=== PATIENT | male | born 1960 | race African-American/Black ===

== ENCOUNTER 2019-01-04 09:45 | Inpatient (IN) | payer OTHER ==
[~2019-01-04] VITALS: Ht 188 cm; Wt 120.2 kg
--- NOTE | ~2019-01-04 | H ---
[facility] [place] [address] HISTORY AND PHYSICAL Name: SALOMÓN SY Room #: 170-5 ADM IN M.R.#: [id number] Admission: 01/04/19 Attend Phys: Norman Flores MD Discharge: Date of : 60 Report #: [id number] THIS REPORT FOR: //name// CC: Norman Flores DATE OF SERVICE: 01/04/2019 HISTORY OF PRESENT ILLNESS: This is a 58-year-old male patient who presented to the Emergency Room after having several weeks history of intermittent substernal chest discomfort. The patient's discomfort had been waxing and waning, but on the day of admission, he was awakened with substernal discomfort and did not away as it had previously. He stated that he usually would rest and it would go away, but this time, it just did not. He subsequently was concerned and presented to the Emergency Room where initial ECG was not classically consistent with ST segment elevation myocardial infarction. He received some intervention and subsequent ECGs demonstrated development of ST segment elevation compatible with anterior wall current of injury. The patient states the discomfort was associated today with some shortness of breath, but usually is not. He has not been having any exertional tightness, heaviness or fullness, any exertional diaphoresis, or dyspnea. No dependent or nondependent edema. He denies any palpitations, orthopnea, or PND prior to today. PAST MEDICAL HISTORY: Significant for: 1. Chronic pain syndrome. 2. Diabetes mellitus. PAST SURGICAL HISTORY: Significant for I and D of a perirectal abscess. MEDICATIONS: At home are metformin, glimepiride, and hydrocodone. ALLERGIES: No known drug allergies. SOCIAL HISTORY: The patient does not smoke. Consumes alcohol socially. Does not use recreational drugs. Does not exercise regularly and does not follow any type dietary restriction, although he tries to watch his "sugars" REVIEW OF SYSTEMS: Except for symptoms as mentioned and those commensurate with comorbid state, the 10-point review of system is negative. LABORATORY DATA: Reviewed and noted in the chart. Electrocardiogram, sinus rhythm, acute anterior wall myocardial infarction. PHYSICAL EXAMINATION: VITAL SIGNS: Well-developed, well-nourished male in moderate distress with blood pressure 151/85, pulse 76, respirations 16 and temperature is 36.6. [address] [address] HISTORY AND PHYSICAL Name: SALOMÓN SYDELL Room #: 1705 [facility] IN [facility].#: [id number] Admission: 01/04/19 Attend Phys: Norman Flores MD Discharge: Date of : 60 Report #: [id number] HEENT: Normocephalic, atraumatic. Pupils are equal, round, reactive to light and accommodation. Extraocular muscles are intact. Sclerae and conjunctivae are anicteric. NECK: JVD is normal. Carotid upstrokes are bilaterally symmetrical. No bruits are heard. No thyromegaly. No lymphadenopathy. LUNGS: Clear to auscultation. No wheezes, rhonchi or crackles. No CVA tenderness. CARDIAC: Demonstrates a regular rhythm. Normal first and second heart sounds. No ventricular or atrial gallops, no rubs noted. No murmurs. No lifts or heaves, PMI normal. ABDOMEN: Soft, nontender, nondistended. Normal bowel sounds. EXTREMITIES: Without cyanosis, clubbing or edema. Distal pulses are intact. DTR symmetrical. NEUROLOGIC: Cranial nerves 2-12 are grossly normal and symmetrical. PSYCHIATRIC: Alert, oriented with normal affect. SKIN: Warm and dry. RADIOLOGIC: Chest x-ray failed to demonstrate any acute process. IMPRESSION: 1. Acute anterior wall myocardial infarction consistent with anterior current of injury. In view of this, options were discussed and we just proceeded directly to the laboratory technology teacher for subsequent intervention. The risks, complications and alternatives of catheterization, percutaneous revascularization, and conscious sedation have been discussed with the patient; he voices understanding and wished to proceed. 2. Diabetes mellitus as per primary care, but we will hold metformin for 48-72 hours post-iodine contrast. In an individual such as him, Jardiance would be very reasonable addition to regimen. 3. Chronic pain, as per primary care, but he is already on a medical regimen. By: 1207 1225 Fabian Green MD /nt
[~2019-01-04 09:45] MED LIST: AMARYL4 MG; GLUCOPHAGE1000 MG; NORCO 5-325 TA1 EACH PO
[2019-01-04 09:46] VITALS: BP 184/100
[2019-01-04 10:15] LABS: ABSOLUTE NEUTROPHILS 5.5 thou/uL (1.4-8.2); BASOPHILS 0.9 % (0.0-2.0); EOSINOPHILS 0.4 % (0.0-3.0); HEMATOCRIT 43.4 % (42.0-52.0); HEMOGLOBIN 13.9 gm/dL (14.0-18.0); LYMPHOCYTES 13.6 % (24.0-44.0); MCH 25.9 pg (26.0-34.0); MCHC 32.1 g/dL (28.0-37.0); MCV 80.7 fL (80.0-100.0); PLATELET COUNT 232 thou/uL (150-400); POLYS 80.1 % (36.0-66.0); RBC 5.38 mil/uL (4.50-6.00); RDW 14.4 % (10.5-14.5); WBC 6.9 thou/uL (4.0-11.0)
[2019-01-04 10:25] LABS: CREATININE 1.2 mg/dL (0.7-1.3); POTASSIUM 4.4 mmol/L (3.5-5.1)
[2019-01-04 10:36] LABS: ALBUMIN 3.5 g/dL (3.4-5.0); TOTAL BILIRUBIN 0.4 mg/dL (<0.1-1.0); TOTAL PROTEIN 7.8 g/dL (6.4-8.2); TROPONIN-I 0.44 ng/mL (<0.06)
[2019-01-04 11:00] VITALS: BP 154/98
[2019-01-04 13:00] VITALS: BP 156/92
[2019-01-04 19:30] VITALS: BP 156/93
--- NOTE | 2019-01-04 20:01 | NUR ---
ASSUMED CARE OF PATIENT AT 1230 FROM MANAGER PROCESS EXCELLENCE. MANAGER PROCESS EXCELLENCE TEAM GAVE BEDSIDE REPORT AND REVIEWED THE RIGHT SIDED GROIN SITE WITH THIS NURSE. ADMISSION COMPLETED. ASSESSMENTS COMPLETED. PATIENT'S BLOOD SUGAR WAS MONITORED AC. ECHO PERFORMED AT THE BEDSIDE WHILE PATIENT WAS ON BEDREST. PATIENT WAS ON BEDREST UNTIL 1600. PATIENT SAT UP IN BED BUT CHOSE TO NOT GET OUT OF BED. RIGHT GROIN SITE CONTINUED TO STAY CLEAN, DRY AND INTACT WITH MINIMAL TENDERNESS. PATIENT HAS HAD MULTIPLE FAMILY MEMBERS IN THE ROOM TODAY. PATIENT DENIES ANY CHEST PAIN. PATIENT TO CONTINUE WITH P0C.
--- NOTE | 2019-01-05 00:14 | 2DMMODE ---
[facility] [address] [place] [address] 2 D/M-MODE ECHOCARDIOGRAM Name: SALOMÓN SY Room #: 219-P [facility] IN .R.#: [id number] Admission: 01/04/19 Attend Phys: Norman Flores MD Discharge: Date of : 60 Date of Service: 01/05/19 0014 Report #: [id number] THIS REPORT FOR: //name// APPROVED REPORT Study performed: 01/04/2019 13:49:14 EXAM: Comprehensive 2D, Doppler, and color-flow Echocardiogram Patient Location: Bedside Room #: 219 Status: routine BSA: 2.45 HR: 61 bpm BP: 154/98 mmHg Rhythm: NSR Other Information Study Quality: Adequate Indications Diabetes Chest Pain STEMI 2D Dimensions IVSd: 14.06 (7-11mm) LVOT Diam: 23.42 (18-24mm) LVDd: 56.39 mm PWd: 13.64 (7-11mm) Ascending Ao: 34.33 (22-36mm) LVDs: 41.85 (25-40mm) Aortic Root: 33.59 mm IVC: 14.00 mm Volumes Left Atrial Volume (Systole) Single Plane 4CH: 37.05 mL Single Plane 2CH: 39.28 mL LA ESV Index: 18.00 mL/m2 Aortic Valve AoV Peak Ronnie.: 0.94 m/s AO Peak Gr.: 3.53 mmHg LVOT Max P.58 mmHg LVOT Max V: 0.95 m/s MERCEDEZ Vmax: 4.34 cm2 Mitral Valve E/A Ratio: 0.7 MV Decel. Time: 234.19 ms [facility] [address] [place] [address] 2 D/M-MODE ECHOCARDIOGRAM Name: SALOMÓN SY Room #: 219-P [facility] IN [facility]#: [id number] Admission: 01/04/19 Attend Phys: Norman Flores MD Discharge: Date of : 60 Date of Service: 01/05/19 0014 Report #: [id number] MV E Max Ronnie.: 0.73 m/s MV A Ronnie.: 0.99 m/s MV PHT: 67.92 ms IVRT: 101.50 ms Pulmonary Valve PV Peak Ronnie.: 0.63 m/s PV Peak Gr.: 1.58 mmHg Pulmonary Vein P Vein S: 0.49 m/s P Vein A: 0.21 m/s P Vein D: 0.21 m/s P Vein A Dur.: 110.7 msec P Vein S/D Ratio: 2.33 Left Ventricle Left ventricle is at the upper limits of normal. There is hypokinesis in the apical septal wall. There is hypokinesis in the apical wall. Mild concentric left ventricular hypertrophy. The overall left ventricular systolic function appears normal. LVEF is 50%. Grade I - abnormal relaxation pattern. Right Ventricle The right ventricle is normal size. The right ventricular systolic function is normal. Atria The left atrium size is normal. The right atrium size is normal. Aortic Valve The aortic valve is normal in structure. No aortic regurgitation is present. There is no aortic valvular stenosis. Mitral Valve The mitral valve is normal in structure. Trace mitral regurgitation. No evidence of mitral valve stenosis. Tricuspid Valve The tricuspid valve is normal in structure. There is no tricuspid valve regurgitation noted. Pulmonic Valve The pulmonary valve is normal in structure. There is no pulmonic valvular regurgitation. Great Vessels The aortic root is normal in size. IVC is normal in size and [facility] [address] [place] [address] 2 D/M-MODE ECHOCARDIOGRAM Name: SALOMÓN SY LOUISE Room #: 219-P [facility] IN ..#: [id number] Admission: 01/04/19 Attend Phys: Norman Flores MD Discharge: Date of : 60 Date of Service: 01/05/19 0014 Report #: [id number] collapses >50% with inspiration. Pericardium There is no pericardial effusion. <Conclusion> Left ventricle is at the upper limits of normal. Mild concentric left ventricular hypertrophy. There is hypokinesis in the apical septal wall. There is hypokinesis in the apical wall. LVEF is 50%. The aortic valve is normal in structure. The mitral valve is normal in structure. Trace mitral regurgitation. The tricuspid valve is normal in structure. The pulmonary valve is normal in structure. There is no pericardial effusion. <ELECTRONICALLY SIGNED> By: Fabian Green MD 01/05/194 Fabian Green MD /INF
[2019-01-05 00:15] VITALS: BP 138/78
--- NOTE | 2019-01-05 04:40 | NUR ---
PT HAS RESTED WELL TONIGHT BUT NOT SOLID SLEEP. PT CONTINUES SR W/PACs ON MONITOR. NO C/O CP DURING MY SHIFT. NO COMPLAINTS OF ANY OTHERS NEEDS WELL. RIGHT GROIN SITE FROM POST HEART CATH IS SOFT, WITH DRIED DRAINAGE OUTLINED AND SOME BRUISING NOTED. AM LABS TO BE REVIEWED. PT HOPING TO GO HOME TODAY.
[2019-01-05 04:45] VITALS: BP 122/61
--- NOTE | 2019-01-05 05:42 | NUR ---
DISCUSSED WITH PT TELEMETRY INTERFERENCE CONSENT, PT SIGNED PAPER AND V/U.
[2019-01-05 05:52] LABS: HEMATOCRIT 40.1 % (42.0-52.0); HEMOGLOBIN 13.1 gm/dL (14.0-18.0); MCH 26.3 pg (26.0-34.0); MCHC 32.6 g/dL (28.0-37.0); MCV 80.8 fL (80.0-100.0); RBC 4.96 mil/uL (4.50-6.00); RDW 14.5 % (10.5-14.5); WBC 7.3 thou/uL (4.0-11.0)
[2019-01-05 05:58] LABS: ALBUMIN 3.1 g/dL (3.4-5.0); CALCIUM 8.7 mg/dL (8.5-10.1); POTASSIUM 4.2 mmol/L (3.5-5.1); TOTAL BILIRUBIN 0.6 mg/dL (<0.1-1.0); TOTAL PROTEIN 6.7 g/dL (6.4-8.2)
[2019-01-05 06:01] LABS: CHOLESTEROL 229 mg/dL (<200); HDL CHOLESTEROL 51 mg/dL (>40); LDL CHOLESTEROL 160 mg/dL (<100); TC:HDL 4.5 Ratio (Not establshd); TRIGLYCERIDE 93 mg/dL (<150); VLDL 19 mg/dL (<40)
[2019-01-05 06:05] LABS: TROPONIN-I 21.74 ng/mL (<0.06)
[2019-01-05 06:07] LABS: SERUM ASSESSMENT Clear
[2019-01-05 08:28] VITALS: BP 121/72
[2019-01-05 13:12] VITALS: BP 136/76
[2019-01-05] MEDS ORDERED: GLIPIZIDE XL10 MG PO (13:27)
[2019-01-05] MEDS ORDERED: JARDIANCE10 MG PO (13:27)
[2019-01-05] MEDS ORDERED: EFFIENT10 MG PO (13:43)
[2019-01-05] MEDS ORDERED: NITROSTAT 0.4 MG SUBLING (13:44)
[2019-01-05] MEDS ORDERED: Lipitor 40 MG Tab PO (13:44)
[2019-01-05] MEDS ORDERED: METOPROLOL SUCCINATE PO (13:45)
[2019-01-05] MEDS ORDERED: ZESTRIL PO (13:45)
[2019-01-05] MEDS ORDERED: Ambien 5 MG Tablet PO (13:46)
[2019-01-05] MEDS ORDERED: NOVOLOG100 UNIT/1 SUBQ (13:47)
--- NOTE | 2019-01-05 13:52 | NUR ---
PT'S [employer]IG[employer] INSURANCE IS OON WITHNO OON BENEFITS. UPDATED DRS EMILIA AND ROEMLIA. PT NEEDS TO BE DISCHARGED IF MEDICALLY STABLE OR TRANSFERRED TO IN [facility]. PT IS STABLE FOR DC HOME TODAY. PROVIDED PT WITH IN [facility].
[2019-01-05 14:23] VITALS: BP 136/76
--- NOTE | 2019-01-05 14:29 | EKG ---
[place] [address] [facility] [place] [address] ELECTROCARDIOGRAM REPORT Name: SALOMÓN SY Room #: 219-P ADM IN M.R.#: [id number] Admission: 01/04/19 Attend Phys: Norman Flores MD Discharge: Date of : 60 Report #: [id number] THIS REPORT FOR: //name// [facility] ED Test Date: 2019-01-04 Test Time: 09:48:23 Pat Name: SALOMÓN SY Department: Room: 219 Gender: M Box Toe Stitcher: RANDY : 1960 Requested By: Og Lamb Order Number: [id number] MD: Charan Petersen Measurements Intervals [place] Rate: 78 P: 44 CT: 171 QRS: 36 QRSD: 100 T: 104 QT: 407 QTc: 464 Interpretive Statements Sinus rhythm Left atrial enlargement Abnrm T, probable ischemia, anterolateral lds No previous ECG available for comparison Electronically Signed On 01-05-2019 14:29:26 CDT by Charan Petersen [email or web address] <ELECTRONICALLY SIGNED> By: Charan Petersen MD 01/05/19 1429 0948 09 Charan Petersen MD /RADHA
--- NOTE | 2019-01-05 14:33 | EKG ---
[address] [address] ELECTROCARDIOGRAM REPORT Name: SALOMÓN SY Room #: 219-P ADM IN M.R.#: [id number] Admission: 01/04/19 Attend Phys: Norman Flores MD Discharge: Date of : 60 Report #: [id number] THIS REPORT FOR: //name// [facility] ED Test Date: 2019-01-04 Test Time: 10:44:15 Pat Name: ASLOMÓN SY Department: Room: 219 P Gender: M Diabetes Territory Manager: MIRZA : 1960 Requested By: Og Lamb Order Number: [id number] MD: Charan Petersen Measurements Intervals [place] Rate: 69 P: 42 KS: 179 QRS: 39 QRSD: 123 T: 114 QT: 422 QTc: 452 Interpretive Statements Sinus rhythm Probable left atrial enlargement Left ventricular hypertrophy Anterior infarct, acute (LAD) No previous ECG available for comparison Electronically Signed On 01-05-2019 14:33:22 CDT by Charan Petersen [email or web address] <ELECTRONICALLY SIGNED> By: Charan Petersen MD 01/05/19 1433 1044 1044 Charan Petersen MD /RADHA
--- NOTE | 2019-01-05 14:49 | EKG ---
[place] [address] [facility] [place] [address] ELECTROCARDIOGRAM REPORT Name: SALOMÓN SY Room #: 219-P ADM IN M.R.#: [id number] Admission: 01/04/19 Attend Phys: Norman Flores MD Discharge: Date of : 60 Report #: [id number] THIS REPORT FOR: //name// [facility] Test Date: 2019-01-05 Test Time: 07:51:23 Pat Name: SALOMÓN SY Department: Room: 219 P Gender: M Assistant Branch Manager: VALENTIN : 1960 Requested By: Norman Flores Order Number: [id number] MD: Charan Petersen Measurements Intervals [place] Rate: 65 P: 57 ID: 170 QRS: 34 QRSD: 105 T: 148 QT: 477 QTc: 496 Interpretive Statements Sinus rhythm Probable left atrial enlargement Probable anteroseptal infarct, recent Lateral leads are also involved No previous ECG available for comparison Electronically Signed On 01-05-2019 14:48:47 CDT by Charan Petersen [email or web address] <ELECTRONICALLY SIGNED> By: Charan Petersen MD 01/05/19 1448 0751 0751 Charan Petersen MD /RADHA
--- NOTE | 2019-01-05 14:53 | NUR ---
ASSUMED CARE AROUND 0700. AXOX4. CLEARED BY CARDIOLOGY. ENDOCRINALOGY CONBSULT COMPLETED WITH NEW PRECRIPTION. CAME AND SAW THE PT AT BEDSIDE FOR D/C. TERESITA CHEST PAIN OR ANY PAIN TODAY. R GROIN CATH SITE CHECKED CLEAN AND INTACT. PRESSURE DRESSING APPLIED AND EDUCATION GIVEN. D/C PRESCRIPTIONS AND EDUCATION GIVEN AT BEDSIDE WITH PRESENT. IV TAKEN OUT. TELEMETRY D/C. PT LEFT IN STABLE CONDITION.
[2019-01-05 14:58] VITALS: BP 136/76
[2019-01-06 01:06] LABS: GLYCOHEMOGLOBIN (HGB A1C) 13.2 % (4.8-5.6)
--- NOTE | 2019-01-06 11:26 | HC ---
[facility] [place] [address] CONSULTATION Name: SALOMÓN SY Room #: 219-P [facility] IN M.R.#: [id number] Admission: 01/04/19 Attend Phys: Norman Flores MD Discharge: 01/05/19 Date of : 60 Report #: [id number] THIS REPORT FOR: //name// CC: Norman Flores MD DATE OF SERVICE: 01/05/2019 ENDOCRINE CONSULTATION CONSULTING PHYSICIAN: Dr. Green. PRIMARY CARE PHYSICIAN: Dr. Norman Flores. REASON FOR CONSULTATION: Uncontrolled type 2 diabetes mellitus. HISTORY OF PRESENT ILLNESS: This is a 58-year-old male patient whose medical background is significant for type 2 diabetes mellitus diagnosed many years ago as well as hyperlipidemia and obesity. The patient was admitted here yesterday following a presentation to the ER with intermittent chest pain that was eventually determined to be linked to STEMI, which earned the patient a coronary angiogram yesterday and a stent placement. The patient has no prior history of CVD. He notes that he has had intermittent chest pain weeks prior to his presentation. For type 2 diabetes mellitus, the patient is maintained on a regimen of metformin and glimepiride; however, he notes that therapeutic changes were being conducted over the past few months and that he had been largely without any active treatment for the majority of these past 3 months. He is not aware of issues pertaining to diabetic retinopathy, nephropathy or neuropathy. The patient is not on active antihypertensive or lipid-lowering therapy. REVIEW OF SYSTEMS: CONSTITUTIONAL: No major issues with fatigue, tiredness, or fever or chills. HEENT: Negative for sore throat, earache. PULMONARY: Negative for shortness of breath, cough or hemoptysis. CARDIAC: Noted for chest pain, intermittent palpitations and occasional lightheadedness. GASTROINTESTINAL: Negative for abdominal pain, nausea, vomiting, noted for occasional bloating and belching. NEUROLOGIC: Negative for loss of consciousness, headaches or seizure activity. SKIN: Negative for rash, ulceration or discoloration. PSYCHIATRIC: Negative for delusions, hallucinations. Otherwise, review of systems is noncontributory other than those mentioned in HPI. [facility] [address] [place] [address] CONSULTATION Name: SALOMÓN SY Room #: 219-P [facility] IN ..#: [id number] Admission: 01/04/19 Attend Phys: Norman Flores MD Discharge: 01/05/19 Date of : 60 Report #: [id number] PAST MEDICAL HISTORY: 1. Type 2 diabetes mellitus. 2. Obesity. 3. Hypertension. 4. Recently diagnosed coronary artery disease, status post STEMI and stent placement. OUTPATIENT MEDICATIONS: Include glimepiride and metformin. CURRENT MEDICATIONS: Include atorvastatin 40 mg daily, lisinopril 2.5 mg daily, metoprolol 12.5 mg b.i.d., Humalog supplemental scale. ALLERGIES: No known drug allergies. FAMILY HISTORY: Noncontributory. SOCIAL HISTORY: The patient denies the use of tobacco, alcohol or illicit drugs. PHYSICAL EXAMINATION: GENERAL: Pleasant, middle-aged -Nepalese male patient who is not in apparent pain or distress. VITAL SIGNS: Blood pressure is 136/76 mmHg, heart rate is 66 beats per minute, respirations 17 per minute, temperature 37.2 degrees. HEENT: Anicteric sclerae. Intact extraocular motions. NECK: Supple, without JVD, carotid bruits or lymphadenopathy. I do not appreciate thyromegaly. CHEST: Clear to auscultation with good air entry bilaterally. No wheezes or crackles. HEART: Regular rate and rhythm without murmurs or gallops. ABDOMEN: Soft and lax without tenderness or organomegaly. He has active bowel sounds. EXTREMITIES: Lower extremity exam is negative for ankle edema. The patient has good pedal pulses bilaterally. NEUROLOGIC: Awake, alert and oriented to time, place and person. The remainder of his examination is nonfocal. SKIN: Negative for ulceration or discoloration. PSYCHIATRIC: Appropriate, pleasant, interactive. Normal mood and affect. LABORATORY RESULTS: Blood glucose values during his hospital stay have run from 223-287 mg/dL. Otherwise, sodium 136, potassium 4.2, chloride 101, CO2 of 27, anion gap 8, BUN 11, creatinine 1.0, glucose 252, AST 111, total bilirubin 0.6, calcium 8.7, alkaline phosphatase 85, ALT 38, protein 6.7, albumin 3.1, GFR 93. Troponin 21.7. Total cholesterol 229, triglycerides 93, HDL 51, LDL 160. White blood count 7.3, hemoglobin 13.1, hematocrit 40.1, platelets 217. Hemoglobin A1c has been ordered, but is pending. [address] [address] CONSULTATION Name: SALOMÓN SY Room #: 219-P [facility] IN [facility].#: [id number] Admission: 01/04/19 Attend Phys: Norman Flores MD Discharge: 01/05/19 Date of : 60 Report #: [id number] ASSESSMENT AND PLAN: 1. Type 2 diabetes mellitus, uncontrolled. -- The patient has an uncontrolled baseline judging by his history as well as by the recorded blood glucose values during his hospital stay so far. Even though his hemoglobin A1c is still pending, I suspect it will be well above 9% if the past few days have been a representation of his baseline at home. The patient and I had a lengthy discussion about the importance of achieving and maintaining adequate glycemic control so as to avoid future macrovascular complications and especially in view of the recently recorded macrovascular complication of coronary artery disease. The patient seems to have a good understanding of these variables. -- In the immediate setting, I would like to place the patient on metformin 1000 mg twice a day, glipizide XL 10 mg once daily and I would like to initiate treatment with Jardiance 10 mg to be given once a day before breakfast, especially given its cardiovascular disease reduction properties in somebody with recorded CVD like the patient is. I advised the patient on the importance of adjusting his diet and exercise measures and I would like to follow up with him again in 2-3 weeks in the outpatient setting. He is advised to monitor his blood glucose routinely at home until I see him in a few weeks. 2. Hypertension. -- The patient's blood pressure is currently under adequate control on the current regimen of metoprolol and Zestril. He is advised to continue the same. 3. Hyperlipidemia. -- The patient's level of lipid control is certainly not at target, especially after the occurrence of this acute coronary event. I certainly would reinforce Dr. Green's recommendation to initiate and maintain high potency statin therapy with atorvastatin 40 mg at bedtime. I certainly appreciate this consultation by Dr. Green. <ELECTRONICALLY SIGNED> By: Rene Ferrara MD 01/06/19 1126 1324 0331 Rene Ferrara MD /dania
--- NOTE | 2019-01-06 15:51 | H ---
[facility] [place] [address] HISTORY AND PHYSICAL Name: SALOMÓN SY Room #: 219-P [facility] IN M.R.#: [id number] Admission: 01/04/19 Attend Phys: Norman Flores MD Discharge: 01/05/19 Date of : 60 Report #: [id number] THIS REPORT FOR: //name// CC: Fabian Flores DATE OF SERVICE: 01/04/2019 CHIEF COMPLAINT: Chest pain. HISTORY OF PRESENT ILLNESS: The patient is a 58-year-old -Beninese male who called me this morning approximately 8:30 to report that he had been having increasing episodes of substernal chest discomfort. Originally, he noticed that when he was mowing the lawn at his home and he would get short of breath with exertion and then it would get better with rest. This occurred over the last several weeks. He is normally quite active and this restricted his ability to do heavy work. Subsequently, this morning when he awakened about 5:00 or 5:30, he noticed the substernal discomfort present at that time. He also had some sweating and mild dyspnea and at 8:30, he called me. I recommended that he have his spouse drive him to the Emergency Room to make sure that it was not coronary disease. Subsequently, I heard from Dr. Lamb in the Emergency Room who called me to let me know that the patient was having a STEMI and he had already notified Dr. Fabian Green, who after reviewing the information and seeing the patient, agreed to take him to the heart catheterization lab. I was present at the lab when Dr. Green performed LAD stent placement and I will defer further description of that procedure to him. Subsequent to his recovery, the patient will be transferred to the CCU. PAST MEDICAL HISTORY: Includes diabetes mellitus type 2 times 10+ years as well as hypertension, hyperlipidemia, gastroesophageal reflux disease, and benign prostate hypertrophy. He recently had some lower quadrant abdominal discomfort and was seen in urgent care clinic and actually had a CT scan of the abdomen and pelvis, which was otherwise benign with the exception of prostate enlargement. I do not have that report with me at the time of this dictation; however. PAST MEDICAL HISTORY: Also includes incision and drainage of an anal abscess in 07/2007. ALLERGIES: He has no known drug allergies. MEDICATIONS: Metformin and glimepiride. I believe he also takes an aspirin daily. 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 He is . He is a nonsmoker, nondrinker, and has no other vices that I am aware of. [address] [address] HISTORY AND PHYSICAL Name: SALOMÓN SY Room #: 219-P [facility] IN M.R.#: [id number] Admission: 01/04/19 Attend Phys: Norman Flores MD Discharge: 01/05/19 Date of : 60 Report #: [id number] FAMILY HISTORY: Significant for diabetes and hypertension. REVIEW OF SYSTEMS: No headache. No difficulty swallowing. No problems with hearing or vision. No neck pain. There is substernal pain as described above with mild shortness of breath and some nausea. It often feels like it will be relieved with a burp. However, it is distinctly related to exertion and better with rest until today. PHYSICAL EXAMINATION: VITAL SIGNS: In the Emergency Room showed a temperature of 36.6 degrees Celsius, respirations of 10 per minute with oxygen saturation of 99% on room air. His pulse was 76, his blood pressure was 184/100, and his weight was self-reported at 265 pounds. GENERAL: The patient is a pleasant, large sized -Beninese male approximately 6 feet tall with mild chest discomfort at time of my exam. I did discuss this case with the emergency physician and stated that the patient had had 3 doses of nitroglycerin and an abnormal EKG at the time of admission: HEENT: Extraocular muscles are intact. Oropharynx moist and pink. No lesions, no exudates. NECK: Supple. There is no adenopathy, thyromegaly, or mass. No jugular venous distention noted. LUNGS: Clear to auscultation bilaterally. CARDIOVASCULAR: Reveals a regular rhythm without significant murmur, gallop or rub. ABDOMEN: Soft. Bowel sounds present, no visceromegaly or masses. EXTREMITIES: There is trace lower extremity pitting edema, otherwise good peripheral pulses and no deficits. NEUROLOGIC: Mental status: Alert, fully oriented, no hallucinations or delusions and normal. Good memory. Cranial nerves 2-12 are intact. Cranial cerebellar is normal. No Babinski sign. No Romberg sign. No deficits of deep tendon reflexes in the upper or lower extremities, no motor deficits. He has mild sensory deficits in the bottom of his feet bilaterally. ASSESSMENT AND PLAN: 1. ST elevation myocardial infarction, acute -- I agree with management up to this point with patient being taken to the labor representative for urgent catheterization and instrumentation. The patient will go on dual antiplatelet therapy and will need echocardiogram to further assess cardiac function. He will need aggressive lipid lowering with statin and aggressive blood pressure management as well. 2. Type 2 diabetes mellitus. We will hold metformin for 5 days and assess his level of control. 3. Hypertension. Beta kenney and ELSY inhibitor therapy to be initiated, as tolerated by cardiac function. [facility] [address] [facility] [place] [address] HISTORY AND PHYSICAL Name: SALOMÓN SY LOUISE Room #: 219-P [facility] IN M.R.#: [id number] Admission: 01/04/19 Attend Phys: Norman Flores MD Discharge: 01/05/19 Date of : 60 Report #: [id number] 4. Diabetic peripheral neuropathy, mild. 5. Benign prostate hypertrophy. <ELECTRONICALLY SIGNED> By: Norman Flores MD 01/06/19 1551 1224 1244 Norman Flores MD /nt
--- NOTE | 2019-01-06 15:51 | D ---
[facility] [place] [address] DISCHARGE SUMMARY Name: SALOMÓN SY Room #: 219-P [facility] IN M.R.#: [id number] Admission: 01/04/19 Attend Phys: Norman Flores MD Discharge: 01/05/19 Date of : 60 Report #: [id number] THIS REPORT FOR: //name// CC: Rene Flores DATE OF SERVICE: 01/05/2019 HOSPITAL COURSE: The patient is a 58-year-old -Bangladeshi male with a history of type 2 diabetes mellitus, who presented with substernal chest pain at rest times approximately 3 hours on the date of admission. Prior to that, he has been having exertional angina or anginal equivalents for at least 3 weeks. At the time of admission in the Emergency Room, he was diagnosed with having ST elevation myocardial infarction and taken from the Emergency Room to the forestry farm laborer. Cardiac catheterization report is not fully available, but per my discussion with Dr. Green, the patient had an LAD lesion that he completely dilated and placed a stent in. The patient was left-sided dominant and had no other treatable lesions. He was taken to the CCU after appropriate time in recovery and had an uneventful hospital stay for the rest of his duration here. At the time of admission, his white count was 6900 with a normal differential. His hemoglobin and hematocrit were 13.9 and 43.4 respectively. He has an MCV of 80.7, which is borderline low and an RDW of 14.4, which is normal. Platelet count of 232,000. His comprehensive metabolic panel on arrival; sodium 132, potassium 4.4, chloride of 97, CO2 of 24, BUN of 16, creatinine 1.2, the anion gap is 11. Glucose was 382, nonfasting and the AST was 18 with an ALT of 32, total bilirubin was 0.4, calcium 9.0, alkaline phosphatase 104, total protein 7.8, albumin 3.5 and the estimated GFR was 75 on arrival. His troponin level was 0.44 in the Emergency Room. Subsequent troponin levels jocelynn quite significantly during the stay as high as 21 on the date of discharge. Initial electrocardiogram showed a sinus rhythm with left atrial enlargement, rate of 78 beats per minute, abnormal T waves with probable ischemia in the anterolateral leads and ST segment elevation with a recommendation to consider inferior injury. Next, EKG showed sinus rhythm with a rate of 69 per minute, probable left atrial enlargement, left ventricular hypertrophy, acute anterior infarct. Third EKG during this hospital stay showed a sinus rhythm with a rate of 65 beats per minute, probable left atrial enlargement, probable anteroseptal infarct, recent and suggested that the lateral leads were also involved. Echocardiogram was performed during this hospital stay. Conclusions were as follows: Left ventricle is at the upper limits of normal. Mild concentric left ventricular hypertrophy. Hypokinesis in the apical septal wall. Hypokinesis in the apical wall. Left ventricular ejection fraction is 50%. Aortic valve is normal in structure. Mitral valve is normal in structure. There is trace mitral regurgitation. Tricuspid valve and pulmonary valves are also normal in [facility] [address] [place] [address] DISCHARGE SUMMARY Name: SALOMÓN SY Room #: 219-P [facility] IN M.R.#: [id number] Admission: 01/04/19 Attend Phys: Norman Flores MD Discharge: 01/05/19 Date of : 60 Report #: [id number] structure. No pericardial effusions noted. Chest x-ray on the day of admission shows no acute cardiopulmonary process and borderline cardiomegaly. Lipid profile done on the date of discharge shows a total cholesterol 229, HDL of 51, LDL of 160, triglycerides of 93 and the total cholesterol to HDL ratio of 4.5. Dr. Green requested endocrinology consult with Dr. Ferrara, who saw the patient and recommended that his discharge medication regimen include Jardiance and to continue glipizide and metformin. Hemoglobin A1c is pending at time of discharge; however, the patient admits to significant medications noncompliance recently. DISCHARGE MEDICATIONS: Regimen will be as follows, Jardiance 10 mg by mouth daily, glipizide 10 mg by mouth daily, metformin 1000 mg by mouth twice daily, atorvastatin calcium 40 mg by mouth daily, prasugrel 10 mg by mouth daily, lisinopril 2.5 mg by mouth nightly, metoprolol succinate 12.5 mg by mouth twice daily. There is no sliding scale of insulin at this time. Nitroglycerin 0.4 mg sublingual every 5 minutes as needed for chest pain up to 3 times prior to calling for assistance and going to the Emergency Room. The patient is being taken off of his zolpidem and ondansetron and insulin sliding scale and glucose supplements. DIAGNOSES: 1. ST segment elevation myocardial infarction involving the left anterior descending coronary artery. 2. Type 2 diabetes mellitus, out of control. 3. Hypertension. 4. Hyperlipidemia. 5. Overweight. The patient is to see Dr. Green in [address] Heavenly Mart in the same amount of time and will see me in followup after that. <ELECTRONICALLY SIGNED> By: Norman Flores MD 01/06/19 1551 1412 2315 Norman Flores MD /dania
--- NOTE | 2019-01-07 17:23 | CATHLAB ---
[facility] [address] [place] [address] INVASIVE PROCEDURE REPORT Name: SALOMÓN SY Room #: 219-P [facility] IN [facility].#: [id number] Admission: 01/04/19 Attend Phys: Norman Flores MD Discharge: 01/05/19 Date of : 60 Date of Service: 01/07/19 1723 Report #: [id number] THIS REPORT FOR: //name// APPROVED REPORT Study performed: 01/04/2019 11:13:22 Patient Details Patient Status: Out-Patient Room #: The patient is a 58 year-old male Event Personnel Fabian Green Box Worker, José Antonio Yun RN RN, Savannah Osuna Monitor, Dat Rogers Johnson, Ashley RN RN, Barrett Long RTNorma Monitor Procedures Performed Art Access - R femoral artery* JAYLEN Place w/wo Plasty Single LAD [id number] Initial Mod Sed Same Phys/QHP Gr5y 135483 03859 Mod Sed Same Phys/QHP Ea [id number] Left Heart Cath w/or w/o Coronaries [id number] LHC Hemostasis w/ Mynx, supervision of conscious sedation Indication STEMI (>0 to less than or equal to 6 hours), Chest pain Procedure Narrative The Right Groin^ was infiltrated with 1% Lidocaine subcutaneous anesthesia. A PINNACLE 6FR Sheath #[id number] sheath was inserted into the RFA^. Coronary angiography was performed using coronary diagnostic catheters. The right coronary system was accessed and visualized with a JR4 catheter. The left coronary system was accessed and visualized with a JL4 catheter. Pre-demployment femoral angiogram was performed . Closure device was deployed with a Fr MYNX CONTROL 6F/7F #[id number]. The patient tolerated the procedure well and there were no complications associated with the procedure. There was no hematoma. Intraoperative Conscious Sedation Sedation start time: 11:09 Case end Time: 12:01 Versed 2 mg Fluoro Time: 1847.00 minutes Dose: DAP 82512.00 cGycm2 [address] [address] INVASIVE PROCEDURE REPORT Name: SALOMÓN SY Room #: 219-P [facility]#: [id number] Admission: 01/04/19 Attend Phys: Norman Flores MD Discharge: 01/05/19 Date of : 60 Date of Service: 01/07/19 1723 Report #: [id number] Contrast Type and Amount: Visipaque 130 ml Coronary Angiography The patient's coronary anatomy is left dominant. Diagnostic Cath Left Main Large-caliber vessel of normal origin bifurcates left anterior descending left circumflex and is free of high-grade disease LAD Moderate caliber vessel which proceeds in the AV groove gives rise to a moderate size first diagonal branch. Beyond this branch the vessel is occluded with no significant antegrade flow. Diagonal 1 Moderate caliber vessel without significant high-grade lesions noted Circumflex Moderate to large caliber vessel normal origin. Proceeds in AV groove giving rise to moderate caliber first marginal branch prior which is an eccentric lesion of approximately 50%. The circumflex vessel continues on posteriorly giving rise to posterior descending artery. Only luminal irregularities are noted. OM1 Moderate caliber vessel without significant high-grade lesions L PDA Moderate caliber vessel coursing in the posterior interventricular sulcus free of high-grade disease Right Coronary Small nondominant vessel of normal origin Left Ventriculography Left Ventriculography was not performed. IVUS Findings Sprinter OTW 2.0 x 12 #[id number] Hemodynamics The aortic pressure is 171/84 mmHg with a mean of 122 mmHg. PCI Technique Lesion Anticoagulation was achieved with Angiomax. Percutaneous coronary intervention was performed on the proximal left anterior descending artery segment. The lesion stenosis prior to intervention was 99% with SAROJ 1 flow. A LAUNCHER 6FR JL4 #[id number] Guide Catheter was used to engage the ostium. A Luge Wire (J) .014 X 182CM #[id number] Interventional Guidewire was used to cross the lesion. BALLOON DILATION A Balloon catheter Sprinter OTW 2.0 x 6 #[id number] was inserted and inflated up to 12.00atm for 17seconds. [facility] [address] [place] [address] INVASIVE PROCEDURE REPORT Name: SYSALOMÓN LOUISE Room #: 219-P [facility] IN M.R.#: [id number] Admission: 01/04/19 Attend Phys: Norman Flores MD Discharge: 01/05/19 Date of : 60 Date of Service: 01/07/19 1723 Report #: [id number] STENT DEPLOYMENT A drug-eluting stent RESOLUTE ALLISON OTW 2.75 X 12 #[id number] was inserted and inflated up to 14.00atm for 11seconds. Additional Inflation: 18.00atm for 10seconds. Final angiography reveals 0 % stenosis with SAROJ 3 flow. BALLOON DILATION A Balloon catheter Sprinter OTW 2.0 x 12 #[id number] was inserted and inflated up to 12.00atm for 19seconds. Additional Inflation: 12.00atm for 8seconds. Additional Inflation: 12.00atm for 8seconds. Conclusion 1. Coronary disease single-vessel high-grade 2. Abnormally other than MX elevated left ventricular end-diastolic pressures 3. Successful percutaneous revascularization of the proximal left anterior descending artery with a 2.75 x 12mm [employer]onic JAYLEN Recommendations Cardiac Risk Reduction Program Medical Therapy Medications Administered Prasugrel <ELECTRONICALLY SIGNED> By: Fabian Green MD 01/07/19 1723 22 22 Fabian Green MD /INF
== END 2019-01-05 15:14 | disposition home or self-care (01) | DRG 247 ==
LOC: ER 09:45 → 2N 11:07 → EROBS 11:07 → 2N 11:18
PROVIDERS: Emergency Medicine; Internal Medicine; ADMIT Internal Medicine
PROC: B211YZZ Fluoroscopy of Multiple Coronary Arteries using Other Contrast (ICD-10-PCS; principal; 2019-01-04)
PROC: 4A023N7 Measurement of Cardiac Sampling and Pressure, Left Heart, Percutaneous Approach (ICD-10-PCS; principal; 2019-01-04)
PROC: 027034Z Dilation of Coronary Artery, One Artery with Drug-eluting Intraluminal Device, Percutaneous Approach (ICD-10-PCS; principal; 2019-01-04)
PROC: B41FYZZ Fluoroscopy of Right Lower Extremity Arteries using Other Contrast (ICD-10-PCS; principal; 2019-01-04)
DX: I21.09 ST elevation (STEMI) myocardial infarction involving other coronary artery of anterior wall (principal); E66.9 Obesity, unspecified; E11.65 Type 2 diabetes mellitus with hyperglycemia; I10 Essential (primary) hypertension; E78.5 Hyperlipidemia, unspecified; G89.4 Chronic pain syndrome; E11.42 Type 2 diabetes mellitus with diabetic polyneuropathy; I25.10 Atherosclerotic heart disease of native coronary artery without angina pectoris; K21.9 Gastro-esophageal reflux disease without esophagitis; N40.0 Benign prostatic hyperplasia without lower urinary tract symptoms; Z83.3 Family history of diabetes mellitus; Z82.49 Family history of ischemic heart disease and other diseases of the circulatory system; Z68.34 Body mass index [BMI] 34.0-34.9, adult
CPT/HCPCS: 10081